=== PATIENT | male | born 1960 | race American Indian/Alaskan Native ===

== ENCOUNTER 2018-01-21 22:14 | Emergency (ER) | payer MEDICARE ==
[2018-01-22 00:32] LABS: Basophils # (Auto) 0.1 K/mm3 (0.0-0.1); Basophils % (Auto) 0.7 % (0.0-1.8); Eosinophils # (Auto) 0.1 K/mm3 (0.0-0.4); Eosinophils % (Auto) 0.6 % (0.0-4.3); Hematocrit 46.6 % (35.5-45.6); Hemoglobin 15.3 gm/dl (11.8-15.2); Lymphocytes # (Auto) 2.9 K/mm3 (1.2-5.4); Lymphocytes % (Auto) 24.4 % (13.4-35.0); Mean Corpuscular HGB Conc 33 % (32-34); Mean Corpuscular Hemoglobin 28 pg (28-32); Mean Corpuscular Volume 84 fl (84-94); Monocytes # (Auto) 1.2 K/mm3 (0.0-0.8); Platelet Count 218 K/mm3 (140-440); Red Blood Count 5.52 M/mm3 (3.65-5.03)
[2018-01-22 01:02] LABS: BUN/Creatinine Ratio 16; Blood Urea Nitrogen 13 mg/dL (9-20); Calcium 9.5 mg/dL (8.4-10.2); Hemolysis Index 14
[2018-01-22 02:12] LABS: Bilirubin,Urine NEG (Negative); Blood,Urine NEG (Negative); Color,Urine Yellow (Yellow); Protein,Urine <15 mg/dL mg/dL (Negative)
[2018-01-22] MEDS ORDERED: TYLENOL PO ONE (08:17)
--- NOTE | 2018-01-22 08:18 | Emergency Department Report ---
ED Extremity Problem HPI - General Chief complaint: Urogenital-Male Stated complaint: CRAMPS,URINATING PROBLEM Time Seen by Provider: 01/22/18 07:57 Source: patient Mode of arrival: Ambulatory Limitations: No Limitations - History of Present Illness Initial comments: 57-year-old male past medical history hypertension, BPH presents with complaint of some intermittent bilateral thigh it to 3 days. Patient is awake alert and oriented 3 not in acute distress. Denies abdominal pain chest pain palpitations fevers chills headaches nausea vomiting. Denies any paresthesias radiating from lower back or saddle paresthesias. Denies any bladder or bowel incontinence. Patient does state that secondary to his BPH he does urinate frequently. Patient denies any rectal pain or difficulty moving his bowels. Patient states he follows up with a urologist for his BPH. Primarily complaining of intermittent thigh cramps which are slightly worse with walking toward the end of the day. Denies any bilateral calf pain or swelling. Denies any recent surgery hormone use long distance travel hemoptysis shortness of breath or any personal history of DVT or PE. MD Complaint: other (thigh cramps) Onset/Timin -: days(s) Location: bilateral lower extremity History of Same: Yes Quality: aching Consistency: intermittent Worsens with: exertion - Related Data Home Medications Medication Instructions Recorded Confirmed Last Taken Lasix TAB 400 mg PO BID 01/31/15 01/31/15 01/30/15 Previous Rx's Medication Instructions Recorded Last Taken Type Metoprolol [Lopressor TAB] 100 mg PO BID #60 tablet 01/31/15 Unknown Rx amLODIPine [Norvasc] 5 mg PO DAILY tablet 01/31/15 Unknown Rx amLODIPine [Norvasc] 5 mg PO DAILY #30 tablet 01/31/15 Unknown Rx HYDROcodone/APAP 5-325 [[place] 1 each PO Q6HR PRN #20 tablet 01/04/16 Unknown Rx 5/325] Sulfamethoxazole/Trimethoprim 1 each PO BID #14 tablet 01/04/16 Unknown Rx [Bactrim DS TAB] Acetaminophen [Acetaminophen TAB] 500 mg PO Q6HR PRN #15 tablet 01/22/18 Unknown Rx Cyclobenzaprine [Flexeril] 10 mg PO TID PRN #5 tablet 01/22/18 Unknown Rx Allergies Allergy/AdvReac Type Severity Reaction Status Date / Time No Known Allergies Allergy Verified 05/17/16 02:22 ED Review of Systems ROS: Stated complaint: CRAMPS,URINATING PROBLEM Other details as noted in HPI ED Past Medical Hx - Past Medical History Previous Medical History?: Yes Hx Hypertension: Yes - Surgical History Past Surgical History?: Yes Additional Surgical History: left knee replacement, pelvic fx surgery - Social History Smoking Status: Never Smoker Substance Use Type: None - Medications Home Medications: Home Medications Medication Instructions Recorded Confirmed Last Taken Type Lasix TAB 400 mg PO BID 01/31/15 01/31/15 01/30/15 History Metoprolol [Lopressor TAB] 100 mg PO BID #60 tablet 01/31/15 Unknown Rx amLODIPine [Norvasc] 5 mg PO DAILY tablet 01/31/15 Unknown Rx amLODIPine [Norvasc] 5 mg PO DAILY #30 tablet 01/31/15 Unknown Rx HYDROcodone/APAP 5-325 [[place] 1 each PO Q6HR PRN #20 tablet 01/04/16 Unknown Rx 5/325] Sulfamethoxazole/Trimethoprim 1 each PO BID #14 tablet 01/04/16 Unknown Rx [Bactrim DS TAB] Acetaminophen [Acetaminophen TAB] 500 mg PO Q6HR PRN #15 tablet 01/22/18 Unknown Rx Cyclobenzaprine [Flexeril] 10 mg PO TID PRN #5 tablet 01/22/18 Unknown Rx ED Physical Exam - General Limitations: No Limitations General appearance: alert, in no apparent distress - Head Head exam: Present: atraumatic, normocephalic - Eye Eye exam: Present: normal appearance, PERRL, EOMI - ENT ENT exam: Present: mucous membranes moist - Neck Neck exam: Present: normal inspection - Respiratory Respiratory exam: Present: normal lung sounds bilaterally. Absent: respiratory distress - Cardiovascular Cardiovascular Exam: Present: regular rate, normal rhythm. Absent: systolic murmur, diastolic murmur, rubs, gallop - GI/Abdominal GI/Abdominal exam: Present: soft, normal bowel sounds - Rectal Rectal exam: Present: deferred - Extremities Exam Extremities exam: Present: normal inspection - Back Exam Back exam: Present: normal inspection - Neurological Exam Neurological exam: Present: alert, oriented X3, CN II-XII intact - Expanded Neurological Exam Expanded Patient oriented to: Present: person, place, time Cranial nerves: EOM's Intact: Normal, Facial Sensation: Normal Sensory exam: Upper Extremity Light Touch: Normal, Lower Extremity Light Touch: Normal Motor strength exam: RUE: 5, LUE: 5, RLE: 5, LLE: 5 Best Eye Response ([place]): (4) open spontaneously Best Motor Response ([place]): (6) obeys commands Best Verbal Response ([place]): (5) oriented [place] Total: 15 - Psychiatric Psychiatric exam: Present: normal affect, normal mood - Skin Skin exam: Present: warm, dry, intact, normal color. Absent: rash ED Course Vital Signs 01/21/18 01/22/18 23:49 08:31 Temperature 97.5 F L Pulse Rate 76 83 Respiratory 18 18 Rate Blood Pressure 152/78 Blood Pressure 173/82 [Right] O2 Sat by Pulse 96 97 Oximetry ED Medical Decision Making - Lab Data Result diagrams: 01/22/18 00:10 01/22/18 00:10 - Medical Decision Making A/P: Muscle cramps, dehydration 1-I advised patient to drink fluid, water and electrolytes 2-I discussed case and lab values with Dr. Cardenas for discharge 3-deep tendon reflexes intact bilaterally both lower extremities. Cranial nerves 2, 3, 4, 5, 6, 7, 8,10, 11, 12 intact on clinical exam, patient is fully lucid awake alert and oriented 3 conversant. Denies any upper or lower extremity paresthesias and has 5/5 strength in bilateral upper and lower extremities on clinical exam. 4- pt independently ambulatory without assistance upon dischargeVital signs stable for discharge 5-advised patient to follow up with primary care. Tylenol and short course Flexeril when necessary Critical care attestation.: If time is entered above; I have spent that time in minutes in the direct care of this critically ill patient, excluding procedure time. ED Disposition Clinical Impression: Muscle cramps Disposition: DC-01 TO HOME OR SELFCARE Is pt being admited?: No Does the pt Need Aspirin: No Condition: Stable Instructions: Leg Cramps (ED), Muscle Cramp (ED), Dehydration (ED) Prescriptions: Acetaminophen [Acetaminophen TAB] 500 mg PO Q6HR PRN #15 tablet PRN Reason: Pain Cyclobenzaprine [Flexeril] 10 mg PO TID PRN #5 tablet PRN Reason: Muscle Spasm Referrals: [facility] [Outside] - 3-5 Days [facility] [Outside] - 3-5 Days Forms: Work/School Release Form(ED) Time of Disposition: 09:01
[2018-01-22 08:32] VITALS: BP 173/82
== END 2018-01-22 09:15 | disposition home or self-care (01) ==
LOC: ED 22:14
DX: G47.62 Sleep related leg cramps (principal); I10 Essential (primary) hypertension; Z96.652 Presence of left artificial knee joint
CPT/HCPCS: 36415; 80048; 81001; 82550; 83735; 85025; 99283